=== PATIENT | male | born 1945 | race Caucasian/White ===

== ENCOUNTER 2023-04-25 08:58 | Inpatient (IN) | payer BC, OTHER ==
[2023-04-25 09:08] VITALS: BMI 29.5
[2023-04-25] MEDS ORDERED: ACETAMINOPHEN 1000 MG/100 ML BAG IVPB ONE (09:55)
[2023-04-25] MEDS ORDERED: morphine CARPU-JECT 4 MG/1 ML DISP.SYRIN IVPUSH ONE ×2 (09:55→12:43)
[2023-04-25] MEDS ORDERED: ACETAMINOPHEN INJECTION 100 ML IVPB ONE (10:23)
[2023-04-25] MEDS ORDERED: morphine SULFATE 4 MG/ML VIAL ONE ×2 (10:23→13:08)
[2023-04-25 10:49] LABS: BASO % 0.5 % (0-2.0); EOS % 0.6 % (0-4.5); HEMATOCRIT 44.6 % (35.4-49); HEMOGLOBIN 14.7 GM/dL (11.7-16.9); LYMPH % 12.7 % (8-40); MCH 29.6 pg (25.7-33.7); MCHC 32.9 g/dl (32.0-35.9); MEAN CELL VOLUME 89.8 fl (80-96); MEAN PLT VOLUME 7.9 fl (7.5-11.1); MONO % 7.1 % (3.8-10.2); NEUT % 79.1 % (42.8-82.8); PLATELET COUNT 216 10^3/uL (134-434); RBC 4.97 M/mm3 (4.00-5.60); RDW 14.1 % (11.9-15.9); WHITE BLOOD COUNT 11.4 K/mm3 (4.0-10.0)
[2023-04-25 11:03] LABS: POTASSIUM 4.9 mmol/L (3.5-5.1)
[2023-04-25 11:05] LABS: CALCIUM 10.1 mg/dL (8.5-10.1)
[2023-04-25 11:06] LABS: ALBUMIN 4.2 g/dl (3.4-5.0); BLOOD UREA NITROGEN 33.4 mg/dL (7-18)
[2023-04-25 11:09] LABS: CREATININE 1.9 mg/dL (0.55-1.3)
[2023-04-25 11:10] LABS: TOT PROT 7.8 g/dl (6.4-8.2)
[2023-04-25 11:11] LABS: LACTIC ACID 3.2 mmol/L (0.4-2.0)
[2023-04-25] MEDS ORDERED: LACTATED RINGERS SOLUTION 1000 ML INFUS.BAG IV ONE (11:11)
[2023-04-25 13:47] LABS: EPI CELLS 5 /uL (0-25.1); HYALINE CASTS 1 /uL (0-3.1); URINE APPEARANCE CLEAR; URINE BACTERIA 10 /uL (0-1359); URINE BILIRUBIN NEGATIVE (NEGATIVE); URINE COLOR YELLOW; URINE GLUCOSE (UA) 3+ (NEGATIVE); URINE KETONE 1+ (NEGATIVE); URINE LEUK ESTERASE NEGATIVE (NEGATIVE); URINE NITRITE NEGATIVE (NEGATIVE); URINE PROTEIN 1+ (NEGATIVE); URINE RBC 84 /uL (0-23.9); URINE UROBILINOGEN 0.2 mg/dL (0.2-1.0); URINE WBC 7 /uL (0-25.8)
[2023-04-25] MEDS ORDERED: TAMSULOSIN HCL 0.4 MG CAP PO ONE (14:04)
[2023-04-25] MEDS ORDERED: morphine CARPU-JECT 2 MG/1 ML DISP.SYRIN IVPUSH ONE (14:04)
[2023-04-25] MEDS ORDERED: LACTATED RINGERS SOLUTION 1,000 ML/1,000 ML INFUS.BAG IV SCH (14:15)
[2023-04-25] MEDS ORDERED: CEFTRIAXONE 1 GM/50 ML BAG ONE (14:15)
[2023-04-25] MEDS ORDERED: TAMSULOSIN HCL 0.4 MG CAP ONE (14:15)
[2023-04-25] MEDS: morphine SULFATE 4 MG/ML VIAL IVPUSH PRN ×2 (17:54→23:19)
[2023-04-25] MEDS: LACTATED RINGERS SOLUTION 1,000 ML/1,000 ML INFUS.BAG IV SCH (18:12)
[2023-04-25] MEDS: metFORMIN HCL 500 MG TABLET (FP) PO SCH (19:23)
[2023-04-25] MEDS ORDERED: ATORVASTATIN CA 40 MG TABLET (FP) PO SCH (22:00)
[2023-04-26] MEDS: LACTATED RINGERS SOLUTION 1,000 ML/1,000 ML INFUS.BAG IV SCH (05:40)
[2023-04-26] MEDS: metFORMIN HCL 500 MG TABLET (FP) PO SCH ×2 (06:10→06:19)
[2023-04-26] MEDS: morphine SULFATE 4 MG/ML VIAL IVPUSH PRN ×2 (06:11→22:38)
[2023-04-26 08:58] LABS: BASO % 0.5 % (0-2.0); EOS % 0.2 % (0-4.5); HEMATOCRIT 44.2 % (35.4-49); HEMOGLOBIN 14.5 GM/dL (11.7-16.9); LYMPH % 8.6 % (8-40); MCH 29.4 pg (25.7-33.7); MCHC 32.7 g/dl (32.0-35.9); MEAN CELL VOLUME 89.9 fl (80-96); MEAN PLT VOLUME 8.4 fl (7.5-11.1); MONO % 10.1 % (3.8-10.2); NEUT % 80.6 % (42.8-82.8); PLATELET COUNT 185 10^3/uL (134-434); RBC 4.92 M/mm3 (4.00-5.60); RDW 14.1 % (11.9-15.9); WHITE BLOOD COUNT 11.1 K/mm3 (4.0-10.0)
[2023-04-26] MEDS ORDERED: EZETIMIBE 10 MG TABLET (FP) PO SCH (10:00)
[2023-04-26] MEDS ORDERED: amLODIPine BESYLATE 5 MG TABLET (FP) PO SCH (10:00)
[2023-04-26] MEDS ORDERED: ONDANSETRON 4 MG/2 ML VIAL IVPUSH PRN ×2 (11:31→12:04)
[2023-04-26] MEDS ORDERED: PROPOFOL 20 ML ONE (11:33)
[2023-04-26] MEDS ORDERED: LIDOCAINE HCL/PF 2% SDV 5ML VIAL ONE (11:33)
[2023-04-26] MEDS ORDERED: ceFAZolin SODIUM 1 GM VIAL ONE (11:33)
[2023-04-26] MEDS ORDERED: SUCCINYLCHOLINE CHLORIDE 200 MG/10 ML SYRINGE ONE (11:34)
[2023-04-26] MEDS ORDERED: ceFAZolin SODIUM 1 GM VIAL IVPB ONE (11:40)
[2023-04-26] MEDS ORDERED: LACTATED RINGERS SOLUTION 1,000 ML IV SCH (11:45)
[2023-04-26] MEDS ORDERED: metFORMIN HCL 500 MG TABLET (FP) PO SCH (16:30)
[2023-04-26] MEDS ORDERED: ACETAMINOPHEN 1000 MG/100 ML BAG IVPB PRN (19:01)
[2023-04-26] MEDS ORDERED: IBUPROFEN 400 MG TABLET (FP) PO PRN (19:02)
[2023-04-26] MEDS ORDERED: SODIUM CHLORIDE 1,000 ML IV SCH (19:30)
[2023-04-26] MEDS: CEPHALEXIN MONOHYDRATE 500 MG CAPSULE (UD) PO SCH (21:05)
[2023-04-26] MEDS ORDERED: ATORVASTATIN CA 40 MG TABLET (FP) PO SCH (22:00)
[2023-04-27] MEDS: CEPHALEXIN MONOHYDRATE 500 MG CAPSULE (UD) PO SCH (05:34)
[2023-04-27] MEDS: morphine SULFATE 4 MG/ML VIAL IVPUSH PRN (07:47)
[2023-04-27] MEDS ORDERED: TAMSULOSIN HCL 0.4 MG CAP PO SCH (08:30)
[2023-04-27 09:49] VITALS: BP 134/63; PULSE 77; RESP 20; TEMP 98
[2023-04-27] MEDS ORDERED: EZETIMIBE 10 MG TABLET (FP) PO SCH (10:00)
[2023-04-27] MEDS ORDERED: amLODIPine BESYLATE 5 MG TABLET (FP) PO SCH (10:00)
== END 2023-04-27 12:28 | disposition home or self-care (01) | DRG 661 ==
LOC: JER 08:58 → JERBED 14:47 → OBSVTOIN 15:29 → J8W 16:20
PROVIDERS: ADMIT Family Medicine; ATTEND Family Medicine
PROC: 0T768DZ Dilation of Right Ureter with Intraluminal Device, Via Natural or Artificial Opening Endoscopic (ICD-10-PCS; principal; 2023-04-26 11:00)
PROC: BT1DZZZ Fluoroscopy of Right Kidney, Ureter and Bladder (ICD-10-PCS; 2023-04-26 11:00)
DX: N13.2 Hydronephrosis with renal and ureteral calculous obstruction (principal); I10 Essential (primary) hypertension; N13.9 Obstructive and reflux uropathy, unspecified; E11.9 Type 2 diabetes mellitus without complications
CPT/HCPCS: 36415; 71046-TC-FY; 74176-TC; 76000-TC-FY; 80053; 81003; 82570; 83605; 83690; 83935; 84300; 84484; 85025; 87086; 93005; 93010; 94760; 99285-25; C1758; C2617; G0378

== ENCOUNTER 2023-05-26 04:03 | Day surgery (SDC) | payer BC, OTHER ==
[2023-05-25 14:04] VITALS: BMI 29.2
[2023-05-26 12:42] LABS: BASO % 0.9 % (0-2.0); EOS % 8.2 % (0-4.5); HEMATOCRIT 37.9 % (35.4-49); HEMOGLOBIN 12.8 GM/dL (11.7-16.9); LYMPH % 39.4 % (8-40); MCH 29.5 pg (25.7-33.7); MCHC 33.9 g/dl (32.0-35.9); MEAN CELL VOLUME 86.9 fl (80-96); MONO % 7.7 % (3.8-10.2); NEUT % 43.8 % (42.8-82.8); PLATELET COUNT 207 10^3/uL (134-434); RBC 4.36 M/mm3 (4.00-5.60); RDW 14.4 % (11.9-15.9); WHITE BLOOD COUNT 7.2 K/mm3 (4.0-10.0)
[2023-05-26] MEDS ORDERED: MIDAZOLAM HCL 2 MG/2 ML SINGLE DOSE VIAL ONE (15:12)
[2023-05-26] MEDS ORDERED: ceFAZolin SODIUM 1 GM VIAL ONE (15:18)
[2023-05-26] MEDS ORDERED: ceFAZolin SODIUM 1 GM VIAL IVPB ONE (15:31)
[2023-05-26] MEDS ORDERED: LIDOCAINE HCL 2% JELLY 11 ML TP ONE (15:53)
[2023-05-26] MEDS ORDERED: ONDANSETRON 4 MG/2 ML VIAL IVPUSH PRN (16:08)
[2023-05-26] MEDS ORDERED: LACTATED RINGERS SOLUTION 1,000 ML IV SCH (16:15)
[2023-05-26 18:31] VITALS: RESP 18
[2023-05-26 22:30] VITALS: BP 130/70; PULSE 65; TEMP 97.2
== END 2023-05-26 10:30 | disposition home or self-care (01) ==
LOC: JASU-SURG 04:03
PROVIDERS: ATTEND Urology
PROC: BT1DYZZ Fluoroscopy of Right Kidney, Ureter and Bladder using Other Contrast (ICD-10-PCS; 2023-05-26)
PROC: 0TP98DZ Removal of Intraluminal Device from Ureter, Via Natural or Artificial Opening Endoscopic (ICD-10-PCS; principal; 2023-05-26 15:00)
DX: N20.1 Calculus of ureter (principal); N32.89 Other specified disorders of bladder; N40.0 Benign prostatic hyperplasia without lower urinary tract symptoms
CPT/HCPCS: 36415; 76000-TC-FY; 82962; 85025; 94760